=== PATIENT | male | born 1965 | race Caucasian/White ===

== ENCOUNTER → 2024-09-25 12:31 | Outpatient (REF) | payer SELFPAY | LOC: CLAB 12:31 | PROVIDERS: ATTENDING PHYSICIAN Surgery | DX: C18.9 Malignant neoplasm of colon, unspecified (principal) | CPT/HCPCS: 88305 ==

== ENCOUNTER → 2024-11-10 08:34 | Outpatient (REF) | payer OTHER, SELFPAY | LOC: MRI 08:34 | PROVIDERS: ATTENDING PHYSICIAN Surgery | DX: R76.9 Abnormal immunological finding in serum, unspecified (principal) | CPT/HCPCS: 74183; A9575 ==